=== PATIENT | male | born 1960 | race Caucasian/White ===

== ENCOUNTER 2020-06-06 07:13 | Outpatient (CLI) | payer BC, SELFPAY ==
[2020-06-06 07:31] LABS: Basophils Absolute Auto 0.1 K/mm3 (0.0-0.1); Basophils Percent Auto 0.6 % (0.2-1.2); Eosinophils Absolute Auto 0.3 K/mm3 (0-0.3); Eosinophils Percent Auto 2.8 % (0-4.4); Hematocrit 47.7 % (42.0-52.0); Hemoglobin 16.3 g/dL (14.0-18.0); Immature Granulocyte Absolute 0.03 K/mm3 (0.00-0.031); Immature Granulocyte Percent A 0.3 % (0-0.5); Lymphocytes Absolute Auto 2.64 K/mm3 (0.9-3.2); Lymphocytes Percent Auto 29.4 % (18.3-44.2); Mean Corpuscular HGB Conc 34.2 g/dl (32-36); Mean Corpuscular Volume 90.7 fl (80-100); Mean Platelet Volume 10.7 fl (7.4-10.4); Monocytes Absolute Auto 0.9 K/mm3 (0.1-0.6); Monocytes Percent Auto 10.1 % (2.6-8.5); Neutrophils Absolute Auto 5.1 K/mm3 (1.3-6.7); Neutrophils Percent Auto 56.8 % (45.5-73.1); Platelet Count Result 252 k/mm3 (150-375); Red Blood Count 5.26 M/mm3 (4.6-6.20)
[2020-06-06 07:43] LABS: Anion Gap 9 mmol/L (8-16); Blood Urea Nitrogen 28 mg/dL (9-20); Calcium 9.1 mg/dL (8.4-10.2); Carbon Dioxide 29 mmol/L (22-30); Chloride 100 mmol/L (98-107); Cholesterol 200 mg/dL (0-200); Estimated Glomerular Filt Rate > 60; Glucose 111 mg/dL (75-110); HDL Direct 57 mg/dL; Potassium 3.5 mmol/L (3.4-5.0); Sodium 138 mmol/L (137-145); Triglycerides 84 mg/dL (<150)
[2020-06-06 07:53] LABS: LDL Cholesterol Direct 110 mg/dL
[2020-06-06 08:13] LABS: Prostate Specific Antigen 2.7 ng/mL (< OR = 4.0); Thyroid Stimulating Hormone 0.621 uIU/mL (0.465-4.680)
[2020-06-06 12:59] LABS: Vitamin D 25 Hydroxy 44.1 ng/mL
== END 2020-06-06 07:14 | disposition home or self-care (01) ==
PROVIDERS: PCP Family Medicine; Referring Provider Nurse Practitioner Family; Visit Provider Family Medicine
DX: E55.9 Vitamin D deficiency, unspecified (principal); Z13.29 Encounter for screening for other suspected endocrine disorder; I10 Essential (primary) hypertension; Z12.5 Encounter for screening for malignant neoplasm of prostate; Z13.220 Encounter for screening for lipoid disorders
CPT/HCPCS: 36415; 80048; 80061; 82306; 84153; 84443; 85025; G0103

== ENCOUNTER 2022-07-18 17:22 | Outpatient (CLI) | payer BC, SELFPAY ==
--- NOTE | ~2022-07-18 | XR_ITS ---
EXAM: XR lumbar spine 2-3V DATE: 07/18/2022 17:52 HISTORY: M54.2 - Cervicalgia; lbp right sided with sciatica . COMPARISON: CT abdomen and pelvis 11/20/2018. FINDINGS: 5 nonrib-bearing lumbar-type vertebral bodies. Pedicles intact. 4 mm anterolisthesis at L4 -5. 3 mm anterolisthesis at L5-S1. Vertebral body heights preserved. Multilevel disc space narrowing, moderate at L4-5 and severe at L5-S1, with vacuum disc phenomenon at both L4-5 and L5-S1. Bilateral pars defects at L5. Multilevel facet hypertrophy and sclerosis. No acute fracture or dislocation. Ath erosclerotic abdominal aortic calcification without evident aneurysm. IMPRESSION: Bilateral pars defects at L5. 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 Severe degenerat hernando disc disease at L4-5 and L5-S1. Multilevel facet arthropathy. Reviewed, dictated and finalized at location K. IMPRESSION: Bilateral pars defects at L5. Grade 1 anterolistheses at L4-5 and L 5-S1. Severe degenerative disc disease at L4-5 and L5-S1. Multilevel facet arth ropathy.
== END 2022-07-18 17:23 | disposition home or self-care (01) ==
PROVIDERS: PCP Family Medicine; Visit Provider Nurse Practitioner Family
DX: M54.2 Cervicalgia (principal); M54.41 Lumbago with sciatica, right side; M51.36 Other intervertebral disc degeneration, lumbar region; M51.37 Other intervertebral disc degeneration, lumbosacral region
CPT/HCPCS: 72100

== ENCOUNTER 2022-12-23 16:04 | Outpatient (CLI) | payer BC, SELFPAY ==
--- NOTE | ~2022-12-23 | US_ITS ---
US renal BI 12/23/2022 16:39 Procedure: Realtime transabdominal ultrasound of the kidneys and bladder. Indication: Renal cysts Comparison: CT dated 11/20/2018 Findings: Renal echotexture is normal bilaterally without hydronephrosis, or renal calculus. There ar e bilateral renal cysts, measuring 6.7 cm on the right and 1.2 cm on the left. The right kidney measu res 13 cm and left kidney measures 11.2 cm. Bladder within normal limits. Impression: 1: Bilateral renal cysts. Reviewed, dictated and finalized at location B. [employer]IVE Impression: 1: Bilateral renal cysts.
== END 2022-12-23 16:05 | disposition home or self-care (01) ==
PROVIDERS: PCP Family Medicine; Visit Provider Family Medicine
DX: N28.1 Cyst of kidney, acquired (principal)
CPT/HCPCS: 76775